=== PATIENT | female | born 1955 | race Caucasian/White ===

== ENCOUNTER 2023-11-04 22:43 | Emergency (ER) | payer MEDICARE, BC, SELFPAY ==
[2023-11-04 23:11] VITALS: BP 156/80; PULSE 61; RESP 17; TEMP 36.4; O2SAT 99; BMI 21.7
--- NOTE | 2023-11-04 23:28 | HMH.EDGENADL ---
Discharge Plan Disposition Patient Disposition: Home, Self-Care Prescriptions Prescriptions: New prednisone 50 mg tablet 50 mg PO DAILY 5 Days Qty: 5 0RF albuterol sulfate 1.25 mg/3 mL solution for nebulization 1.25 mg inhalation Q6H PRN (Reason: bronchospasm) Qty: 75 0RF ondansetron HCl 4 mg tablet 4 mg PO Q8H PRN (Reason: nausea and vomiting) 5 Days Qty: 30 0RF Referrals Follow up/Referrals: Provider,Referral, MD [Primary Care Provider] - See instructions Activity Restrictions/Add. Instructions Additional Instructions/Restrictions: Please use albuterol nebulizer solution as needed. If you are continue to have wheezing in the next couple of days, recommend starting the prednisone. Please take Zofran as needed for nausea and vomiting. Please follow-up with your primary care provider. Please return to the emergency department if you develop any new or worsening symptoms or become concerned for your health. Clinical Impressions Clinical Impression: Asthma exacerbation, Upper respiratory infection, Headache Instructions Patient Instructions: DI for Acute Bronchitis Discharge ED Provider: Crow Hernandez General Adult HPI General Chief complaint: Upper Respiratory Infection Stated complaint: vomiting shell congestion Time Seen by Provider: 11/04/23 23:22 Mode of Arrival: Family Vehicle Source of Information: Patient Limitations: No Limitations Description of Symptoms (Recalled from ER Triage Doc. by RN): congestion x 1 week, vomiting and headache, unsettle stomach, difficulty maintaining intake today. PMH: thyroid related, asthma,arthritis. afebrile. History of Present Illness HPI narrative: 68-year-old female with history of asthma, arthritis presents with multiple complaints. She reports that she has had sinus congestion for the last week or so. Today she started happening nausea and vomiting, she is also had a headache today. She denies any chest pain or abdominal pain or shortness of breath she reports that she has migraines but this feels different than her typical migraine. She reports that she has asthma which is normally well-controlled but feels like she is wheezing more than normal. She denies any vision changes or other neurologic complaints. She denies any fever at home. She denies productive cough. Related Data Previous Rx's Medication Instructions Recorded albuterol sulfate 1.25 mg/3 mL 1.25 mg (3 mL) inhalation Q6H PRN 11/05/23 solution for nebulization bronchospasm #75 mL ondansetron HCl 4 mg tablet 4 mg PO Q8H PRN nausea and 11/05/23 vomiting 5 days #30 tabs prednisone 50 mg tablet 50 mg PO DAILY 5 days #5 tabs 11/05/23 Allergies Allergy/AdvReac Type Severity Reaction Status Date / Time No Known Allergies Allergy Verified 11/04/23 23:47 [facility] Disclaimer: The information contained in this section may have been updated after the patient was seen, as this information can be updated by other users. Social History Smoking Status: Unknown if ever smoked alcohol intake: never current occupational status: other Travel in the last 8 weeks: None ROS Obtained: Yes All systems reviewed & no additional complaints except as documented Physical Exam General General appearance: alert and in no apparent distress Head Head exam: atraumatic and normocephalic Eye Eye exam: Present normal appearance, PERRL and EOMI ENT ENT exam: Present normal oropharynx and normal external ear exam Neck Neck exam: Present normal inspection and full ROM Chest Chest inspection: Present normal inspection and symmetric chest wall rise; Absent tenderness Respiratory Respiratory exam: Present wheezes (Bilateral end expiratory); Absent respiratory distress Cardiovascular Cardiovascular exam: Present regular rate and normal rhythm Abdominal Exam Abdominal exam: Present soft; Absent distention, tenderness or guarding Extremities Exam Extremities exam: Present normal inspection; Absent edema or joint swelling Back Exam Back exam: Present normal inspection; Absent tenderness Neurological Exam Neurological exam: Present alert and oriented X3; Absent motor sensory deficit Psychiatric Psychiatric exam: Present normal affect and normal mood Skin Skin exam: Present warm, dry and normal color Lymphatic Lymphatic Findings: no adenopathy Medical Decision Making Medical Records Medical records reviewed: Yes I reviewed the patient's medical records. Dennys Inquiry Pt receiving controlled substance: No Dennys was queried for this patient: No Vital Signs: 11/04/23 23:11 Temperature 97.6 F Temperature Source Oral Pulse Rate [Right Brachial] 61 Respiratory Rate 17 Blood Pressure [Right Arm] 156/80 H Blood Pressure Mean [Right Arm] 105 Blood Pressure Source [Right Arm] Automatic Cuff Blood Pressure Position [Right Arm] Sitting 02 Sat by Pulse Oximetry 99 Oxygen Delivery Method Room Air Lab Data Lab results reviewed: Yes I reviewed the patient's lab results. Lab Results 11/04/23 23:17: WBC 8.2, RBC 4.65, Hgb 14.1, Hct 43.1, MCV 92.6, MCH 30.4, MCHC 32.8, RDW 13.0, Plt Count 295, MPV 7.5, Neut % (Auto) 62.4, Lymph % (Auto) 28.4, [place] % (Auto) 6.2, Eos % (Auto) 1.9, Baso % (Auto) 1.1, Neut # (Auto) 5.1, Lymph # (Auto) 2.3, [place] # (Auto) 0.5, Eos # (Auto) 0.2, Baso # (Auto) 0.1, Sodium 137, Potassium 4.6, Chloride 106, Carbon Dioxide 27, Anion Gap 8.6, BUN 19 H, Creatinine 0.80, Estimated Creat Clear 52, Estimated GFR 71, Est GFR ( Amer) 86, Glucose 109 H, Calcium 8.9, Total Bilirubin 0.8, AST 28, ALT 20, Alkaline Phosphatase 64, Total Protein 7.3, Albumin 4.3, Globulin 3.0, Albumin/Globulin Ratio 1.4 11/04/23 23:17 11/04/23 23:17 Orders (Tests/Meds): ED MEDICATIONS Discontinued Medications Generic Name Dose Route Start Last Admin Trade Name Freq PRN Reason Stop Dose Admin Acetaminophen 1,000 mg 11/04/23 23:26 11/04/23 23:55 Acetaminophen 500mg Tab PO 11/04/23 23:27 1,000 mg ONCE ONE Administration Albuterol/Ipratropium 6 ml 11/04/23 23:26 Ipratropium/Albuterol 3 Ml Neb IH 11/04/23 23:27 ONCE ONE Dexamethasone Sodium Phosphate 10 mg 11/04/23 23:26 11/04/23 23:59 Dexamethasone 4mg/Ml 1ml Vial IV 11/04/23 23:27 10 mg ONCE ONE Administration Lactated Ringer's 1,000 mls @ 999 mls/hr 11/04/23 23:30 11/04/23 23:54 Lactated Ringer's 1000 Ml Bag IV 11/05/23 00:30 999 mls/hr .Q1H1M CA Administration Magnesium Sulfate 2 gm in 50 mls @ 50 mls/hr 11/04/23 23:26 11/05/23 00:04 Magnesium Sulfate 2gm/50ml Premix IV 11/05/23 00:25 50 mls/hr ONCE ONE Administration Ketorolac Tromethamine 30 mg 11/04/23 23:26 11/04/23 23:57 Ketorolac 30mg/Ml Vial IV 11/04/23 23:27 30 mg ONCE ONE Administration Prochlorperazine Edisylate 10 mg 11/04/23 23:26 11/05/23 00:01 Prochlorperazine 10mg/2ml Vial IV 11/04/23 23:27 10 mg ONCE ONE Administration ORDERS Category Date Time Status CBC w/Auto Diff [Complete Blood Count Auto Diff] Stat Lab 11/04/23 23:17 Completed CMP [Comprehensive Metabolic Panel] Stat Lab 11/04/23 23:17 Completed Medical Decision Narrative: 68-year-old female with history of asthma presents with multiple complaints. History was obtained interactive discussion with patient. On arrival, patient is [afebrile, hemodynamically stable, satting appropriately, alert, oriented x4, GCS 15], moving all extremities spontaneously. Full physical exam performed and significant for end expiratory wheezing bilaterally Differential includes but is not limited to asthma exacerbation, tension headache, migraine headache, URI, flu, intra-abdominal pathology. Patient was given DuoNeb's x 2, 10 mg Decadron IV,, Tylenol, Toradol IV, 2 g mag IV, 1 L fluid bolus, Compazine for symptomatic management of asthma exacerbation and headache and correction of underlying abnormalities. Workup initiated including CBC CMP. On re-evaluation, patient [remains afebrile, HD stable.] Reports that her headache is resolved and her breathing feels much better. On reassessment patient has no more wheezing. Laboratory workup independently interpreted by me and significant for no significant electrolyte derangement, stable creatinine, no significant leukocytosis. Given patient history, exam and workup, patient's presentation most likely represents acute asthma exacerbation in the setting of upper respiratory infection he with associated mild headache. Patient was discharged in stable condition with return precautions, prescription for albuterol nebulizer solution, a prescription for prednisone to take if her wheezing persists over the next couple of days, a prescription for Zofran for nausea and vomiting.. Procedures Risk/Benefits of Procedure(s) Were Explained: Yes Critical Care Critical Care Time Critical Care Time: No
[2023-11-04 23:30] VITALS: BP 141/76; PULSE 57; RESP 13; O2SAT 95
[2023-11-04 23:33] LABS: Basophils # 0.1 K/mm3 (0-0.2); Basophils % 1.1 % (0.1-2.0); Eosinophils # 0.2 K/mm3 (0.0-0.4); Eosinophils % 1.9 % (0.1-12.0); Hematocrit 43.1 % (37.0-47.0); Hemoglobin 14.1 g/dL (12.2-16.2); Lymphocytes # 2.3 K/mm3 (0.7-4.5); Lymphocytes % 28.4 % (10-50); Mean Corpuscular HGB Conc 32.8 g/dL (31.8-35.4); Mean Corpuscular Hemoglobin 30.4 pg (27.0-31.2); Mean Corpuscular Volume 92.6 fl (81-99); Mean Platelet Volume 7.5 fl (7.4-10.4); Monocytes # 0.5 K/mm3 (0.1-1.0); Monocytes % 6.2 % (1.7-9.3); Neutrophils # 5.1 K/mm3 (1.8-7.8); Neutrophils % 62.4 % (37.0-80.0); Platelet Count 295 K/mm3 (142-424); Red Blood Count 4.65 M/mm3 (4.20-5.40); White Blood Count 8.2 K/mm3 (4.8-10.8)
[2023-11-04 23:39] LABS: Alanine Aminotransferase 20 U/L (12-78); Albumin Level 4.3 g/dl (3.5-5.0); Albumin/Globulin Ratio 1.4 (1.1-1.8); Alkaline Phosphatase 64 U/L (38-126); Anion Gap 8.6 mEq/L (5-15); Aspartate Amino Transferase 28 U/L (14-36); Bilirubin,Total 0.8 mg/dl (0.2-1.3); Blood Urea Nitrogen 19 mg/dl (7-17); Calcium 8.9 mg/dl (8.4-10.2); Carbon Dioxide 27 mmol/L (22.0-30.0); Chloride 106 mmol/L (98-107); Creatinine Clearance Estimated 52 mL/min (50-200); Estimated Glomerular Filt Rate 71 ml/min (>60); GFR (African American) 86 ML/MIN (>60); Glucose 109 mg/dl (74-100); Potassium 4.6 mmoL/L (3.5-5.1); Sodium 137 mmol/L (136-145); Total Protein,Serum 7.3 g/dl (6.3-8.2)
[2023-11-04] MEDS: LACTATED RINGERS 1000ML 1,000 ML 999 ML IV (23:54)
[2023-11-04] MEDS: ACETAMINOPHEN 500MG TAB 1000 MG PO (23:55)
[2023-11-04] MEDS: KETOROLAC 30MG/ML VIAL 30 MG IV (23:57)
[2023-11-04] MEDS: DEXAMETHASONE 4MG/ML 1ML VIAL 10 MG IV (23:59)
[2023-11-05] VITALS: BP 153/72; PULSE 59; RESP 12; O2SAT 100
[2023-11-05] MEDS: PROCHLORPERAZINE 10MG/2ML VIAL 10 MG IV (00:01)
[2023-11-05] MEDS: MAGNESIUM SULFATE IN WATER 2 GM/50 ML PIGGYBACK IV (00:04)
--- NOTE | 2023-11-05 00:13 | PC.NURSE ---
respiratory contacted for neb txs.
[2023-11-05 00:20] VITALS: PULSE 56
[2023-11-05] MEDS: IPRATROPIUM/ALBUTEROL 3 ML NEB 6 ML IH (00:20)
[2023-11-05 00:35] VITALS: PULSE 61
[2023-11-05 00:56] VITALS: BP 128/67; PULSE 61; RESP 16; TEMP 36.4; O2SAT 97
== END 2023-11-05 01:05 | disposition home or self-care (01) ==
PROVIDERS: Emergency Provider Emergency Medicine
DX: J45.901 Unspecified asthma with (acute) exacerbation (principal); R51.9 Headache, unspecified; R11.2 Nausea with vomiting, unspecified; J06.9 Acute upper respiratory infection, unspecified
CPT/HCPCS: 80053; 85025; 96365; 96375; 99284; J3475